=== PATIENT | male | born 1980 | race Caucasian/White ===

== ENCOUNTER 2016-05-23 21:28 | Emergency (ER) | payer OTHER, BC ==
[2016-05-23] MEDS ORDERED: GLUCAGON,HUMAN RECOMB 1 MG INJ IM ONE (22:00)
--- NOTE | 2016-05-23 22:02 | ER Document Report ---
ED Medical Screen (RME) - General Stated Complaint: FOREIGN OBJECT IN THROAT Mode of Arrival: Ambulatory Information source: Patient Notes: Patient reports eating rice and chicken this evening and developing a food bolus in his esophagus. Patient states he's had this happen before in the past but has always been able to gradually have the food pass. Patient states he has multiple family members who have had have endoscopy procedures as well as surgery to resolve similar issues. Patient denies any difficulty breathing. Patient has been unable to keep any oral fluids down and has been spitting up his oral secretions. Physical Exam - Respiratory Respiratory status: No respiratory distress Course - Re-evaluation Re-evalutation: 05/23/16 22:[address] Greene who recommends giving 1 mg of glucagon IM
--- NOTE | 2016-05-23 22:26 | ER Document Report ---
ED General - General Stated Complaint: FOREIGN OBJECT IN THROAT Time seen by provider: 22:20 Mode of Arrival: Ambulatory Notes: Patient is a 36-year-old male that comes emergency department for chief complaint of a sensation of food stuck in his esophagus. Patient denies shortness of breath or difficulty breathing. He states he has had this multiple times in the past, states multiple family members had the same issue ( even requiring endoscopy/surgery), states that he has always been able to gradually pass the food in the past, states he has not been able to yet. He states he was eating chicken, rice, beans. He denies swallowing any bones. Patient is trying to flush water but states he is spitting pure water back out. He has choked up a small amount of food. Inguinal hernia repair 1.5 weeks ago, patient denies any other medical history. Past Medical History - General Information source: Patient - Social History Smoking Status: Never Smoker Frequency of alcohol use: None Drug Abuse: None Lives with: Family Family History: Reviewed & Not Pertinent - Medical History Medical History: Negative Surgical Hx: Negative - Immunizations Immunizations up to date: Yes Hx Diphtheria, Pertussis, Tetanus Vaccination: Yes Review of Systems - Review of Systems Constitutional: No symptoms reported EENT: No symptoms reported Cardiovascular: No symptoms reported Respiratory: No symptoms reported Gastrointestinal: See HPI Genitourinary: No symptoms reported Male Genitourinary: No symptoms reported Musculoskeletal: No symptoms reported Skin: No symptoms reported Hematologic/Lymphatic: No symptoms reported Neurological/Psychological: No symptoms reported Physical Exam - Vital signs Vitals: Temp Pulse Resp BP Pulse Ox 98.0 F 78 20 143/89 H 95 05/23/16 21:52 05/23/16 21:52 05/23/16 21:52 05/23/16 21:52 05/23/16 21:52 Interpretation: Normal - General General appearance: Anxious In distress: Mild - Patient appears to be uncomfortable, sitting very upright at the edge of the bed - HEENT Head: Normocephalic, Atraumatic Eyes: Normal Conjunctiva: Normal Extraocular movements intact: Yes Eyelashes: Normal Pupils: PERRL Sinus: Normal Nasal: Normal Mouth/Lips: Normal Mucous membranes: Normal Pharynx: Normal Neck: Normal - Respiratory Respiratory status: No respiratory distress Chest status: Nontender Breath sounds: Normal. No: Decreased air movement, Wheezing - Full breath sounds bilaterally Chest palpation: Normal - Cardiovascular Rhythm: Regular Heart sounds: Normal auscultation Murmur: No - Abdominal Inspection: Normal Distension: No distension Bowel sounds: Normal Tenderness: Nontender. No: Tender, Guarding Organomegaly: No organomegaly - Back Back: Normal, Nontender. No: Tender - Extremities General upper extremity: Normal inspection, Nontender, Normal ROM, Normal strength General lower extremity: Normal inspection, Nontender, Normal ROM, Normal strength - Neurological Neuro grossly intact: Yes Cognition: Normal Orientation: AAOx4 Ankush Coma Scale Eye Opening: Spontaneous Cummings Coma Scale Verbal: Oriented Cummings Coma Scale Motor: Obeys Commands Ankush Coma Scale Total: 15 Speech: Normal Motor strength normal: LUE, RUE, LLE, RLE Sensory: Normal - Psychological Associated symptoms: Anxious - Skin Skin Temperature: Warm Skin Moisture: Dry Skin Color: Normal Course - Re-evaluation Re-evalutation: Patient was given 1 mg IM completely gone, after this patient states the sensation slightly improved, however when tested with drinking water the water came back up without any stomach acid mixed in. Patient given nitroglycerin sublingual, after this patient began to have improvement of symptoms, patient was finally able to swallow the food bolus, patient drank 3 separate cups of water, no difficulty, smiling, states he feels great, asking for discharge. I recommended to him to follow-up with his primary care back home and get a referral for endoscopy for additional management. Patient states he'll return for any concerning symptoms. - Vital Signs Vital signs: Temp Pulse Resp BP Pulse Ox 98.4 F 78 18 126/83 H 96 05/24/16 00:52 05/24/16 00:52 05/24/16 00:52 05/24/16 00:52 05/24/16 00:52 Discharge - Discharge Clinical Impression: Distal esophageal obstruction due to foreign body Condition: Stable Disposition: HOME, SELF-CARE Additional Instructions: Please follow-up with your primary care and make arrangements for an endoscopy to be performed. Return to emergency department for any concerning or worsening symptoms.
[2016-05-23] MEDS ORDERED: NITROGLYCERIN 0.4 MG/TAB 25 TAB/BOTTLE SL ONE (23:33)
[2016-05-24 00:56] VITALS: BP 126/83
== END 2016-05-24 01:00 | disposition home or self-care (01) ==
LOC: ER 21:28
DX: T18.128A Food in esophagus causing other injury, initial encounter (principal); X58.XXXA Exposure to other specified factors, initial encounter; Y93.89 Activity, other specified; Z98.890 Other specified postprocedural states
CPT/HCPCS: 99283; J1610